=== PATIENT | female | born 1985 | race Caucasian/White ===

== ENCOUNTER 2022-04-22 13:48 | Outpatient (CLI) | payer OTHER | END 2022-04-22 13:49 | disposition home or self-care (01) | LOC: CSHULT 13:48 | PROVIDERS: ATTEND Surgery | DX: E04.9 Nontoxic goiter, unspecified (principal); E04.1 Nontoxic single thyroid nodule; E07.9 Disorder of thyroid, unspecified | CPT/HCPCS: 76536 ==

== ENCOUNTER 2022-06-22 10:10 | Day surgery (SDC) | payer OTHER ==
[2022-06-22] MEDS ORDERED: Lidocaine 1% PF 5 ML VIAL ONE (10:34)
[2022-06-22] MEDS ORDERED: Sodium Bicarbonate 2.5 MEQ/5 ML VIAL ONE (10:34)
[2022-06-22 10:41] VITALS: BP 114/61; TEMP 97.6
== END 2022-06-22 11:30 | disposition home or self-care (01) ==
LOC: CSHULT 10:10
PROVIDERS: ATTEND Specialist
PROC: 0GBH3ZX Excision of Right Thyroid Gland Lobe, Percutaneous Approach, Diagnostic (ICD-10-PCS; principal; 2022-06-22)
DX: E04.1 Nontoxic single thyroid nodule (principal); E78.00 Pure hypercholesterolemia, unspecified; F41.9 Anxiety disorder, unspecified; F32.A Depression, unspecified; G43.909 Migraine, unspecified, not intractable, without status migrainosus; F17.210 Nicotine dependence, cigarettes, uncomplicated; Z79.899 Other long term (current) drug therapy
CPT/HCPCS: 76942; 88173; 88305